=== PATIENT | female | born 1950 | race Caucasian/White ===

== ENCOUNTER 2023-04-24 14:29 | Emergency (ER) | payer OTHER, SELFPAY ==
[2023-04-24 14:31] VITALS: BP 164/100
--- NOTE | 2023-04-24 14:33 | ED.GENMED ---
History of Present Illness
General
Chief Complaint: Change in Mental Status
Time Seen by Provider: 04/24/23 14:32
History of Present Illness
History of Present Illness:
HPI: I spoke to EMS for history at 2:30 PM. At 2 PM, the patient was in her dining room with her and had abrupt onset of symptoms. She was found to have left-sided paresis. EMS called prehospital stroke alert. She had been vomiting. She
is not on any antiplatelets or anticoagulation. She is on a statin according to EMS.
EXAM:
GENERAL: The patient appears to be in mild to moderate distress and has active retching
HEENT: Moist oral mucosa
CARDIOVASCULAR: No murmurs, normal heart rate and rhythm, No chest wall tenderness
PULMONARY: No respiratory distress, breath sounds are clear and equal
ABDOMEN: Soft with no peritoneal signs, no tenderness
NEUROLOGIC: Markedly decreased strength strength left upper and left lower extremities, no coordination deficits
PSYCHIATRIC: Appropriate mental status, reasonable insight and judgement
EXTREMITIES: Nontender, no edema, markedly decreased active range of motion on the left upper and left lower extremity
SKIN: No rash, no lesions
ED COURSE:
2:30 PM: I initially evaluated patient
NUMBER AND COMPLEXITY OF PROBLEMS ADDRESSED AT THE ENCOUNTER
� Chronic conditions affecting care: High blood pressure, anemia
� Acute Exacerbation and/or Progression of Chronic Illness: This is an acute problem
� Differential Diagnosis includes: Nonhemorrhagic CVA, hemorrhagic CVA, hypoglycemia has been ruled out by EMS, electrolyte abnormality, anemia
AMOUNT AND/OR COMPLEXITY OF DATA TO BE REVIEWED AND ANALYZED
� I performed an independent evaluation of and my interpretation is:
EKG: Sinus 101, normal axis, nonspecific ST abnormality, QTc is 471 ms
CT: CT personally reviewed which shows intraparenchymal hemorrhage on the right with intraventricular extension into the lateral ventricle on the right
X-rays:
Laboratory Studies: Minimal leukocytosis noted, chemistries pending, coags unremarkable, glucose 186
Other:
� Review of other/old records: The patient was here in 2021 with a uterine prolapse managed operatively
� Clinical information was obtained by an independent historian: EMS
� Prescriptions/Medications Considered but not given: Considered Keppra but not recommended by neurology
� Further testing considered but not performed:
RISK OF COMPLICATIONS AND/OR MORBIDITY OR MORTALITY OF PATIENT MANAGEMENT
� Social determinants of health affecting care:
� Discussion with other providers: Dr. Kiran immediately upon arrival, I also spoke to Dr. Rhoades via [place] text
� Escalation of care including admission/observation vs risk of discharge considered: The patient was seen immediately upon arrival and is found to have an intraventricular hemorrhage arising from a bleed in the right thalamic
region. She is not on antiplatelets or anticoagulation. Her vital signs were closely monitored and has remained hypertensive. She was placed on a Cardene drip emergently. The patient will emergently be transferred to [facility]. [place] accepts.
Past History
Past History
ED Past Medical History: Other (anemia, glaucoma, stress incont, OA)
Social History
Tobacco: Non-smoker
Personal:
Phy Exam
Physical Exam
Physical Exam:
See HPI
Course
Orders/Labs/Results
Orders:
Orders
04/24/23 14:32
CT Head W/o Cont STROKE ALERT Urgent
Reason For Exam: acute L paresis
04/24/23 14:33
Electrocardiogram (*1) Urgent
Reason for Study: TIA/Stroke
EKG- Treatment ONCE
04/24/23 14:37
Ondansetron Injectable [Zofran] 4 mg .ROUTE .STK-MED ONE
04/24/23 14:40
Basic Metabolic Panel Urgent
LFT [[id number]] Urgent
Lipase Urgent
PTT Urgent
Prothrombin Time Urgent
04/24/23 14:41
Type+Screen Urgent
Complete Blood Count/With Diff Urgent
Ondansetron Injectable [Zofran] 4 mg IV NOW STA
04/24/23 15:09
Nicardipine 40 mg/200 ml [Cardene] 40 mg in 200 ml .ROUTE .STK-MED
04/24/23 15:15
Nicardipine 40 mg/200 ml [Cardene] 40 mg in 200 ml IV PER PROTOCOL
Nicardipine 40 mg/200 ml [Cardene] 40 mg in 200 ml IV PER PROTOCOL
Initial dose in mg/hr, then titrate:: 5
Titrate to keep:: SBP 120 - 140 mmHg
Titrate to keep other:: Keep SBP <140
Titrate by mg/hr:: 2.5 mg/hr
Frequency of titrations (minutes):: 5-15 minutes
Maximum dose in mg/hr:: 15
Begin to taper infusion when:: Remained at goal for 2hrs
Taper by mg/hr:: 2.5 mg/hr
Frequency of taper (minutes) if patient maintains goal:: every 15-30 minutes
Taper to off?: Yes
If infusion off & no longer maintaining goal:: Contact Provider
Abnormal Lab Results
04/24/23 04/24/23
14:34 14:41
WBC 10.9 H 10^3/uL
(4.8-10.8)
Absolute Lymphs (auto) 3.9 H 10^3/uL
(1.2-3.4)
POC Glucose 186 H mg/dl
(70-99)
04/24/23 14:41
Vital Signs
Initial and Last Documented VS:
Initial Vital Signs
Pulse Resp BP Pulse Ox
100 22 164/100 98
04/24/23 14:31 04/24/23 14:31 04/24/23 14:31 04/24/23 14:31
Last Documented Vital Signs
Pulse Resp BP Pulse Ox
100 22 164/100 98
04/24/23 14:31 04/24/23 14:31 04/24/23 14:31 04/24/23 14:31
*Pulse Oximetry
Patient hypoxic: no
*Critical Care Note
Total Time (30-74mins, 75-104mins- exclusive of procedures): 60 minutes
comment:
The patient's neurologic status was closely monitored. She remains to have flaccid paralysis. She intermittently does have retching but has been protecting her airway. She has reasonable insight and judgment. Blood pressure did rise and we
increase the Cardene. I had emergent discussions with neurology and neurosurgery.
ED Attending Note
-
Portions of this chart may have been created with voice recognition software.� Occasional wrong word or��sound alike� substitutions may have occurred due to the inherent limitations of voice recognition software.
Discharge Plan
Departure
Patient Disposition: Acute Care Hospital
Date of Disposition: 04/24/23
Time of Disposition: 15:11
Discharge Problem:
Intracranial hemorrhage
Prescriptions:
No Action
lisinopril 20 mg Tablet
20 mg PO DAILY
ascorbic acid (vitamin C) [Vitamin C] 500 mg Tablet
500 mg PO DAILY
cholecalciferol (vitamin D3) [Vitamin D3] 50 mcg (2,000 unit) Tablet
50 mcg PO Q48H
vwqhjadytzag-kelp-pehki acid 18-400 mg-mcg Tablet
1 tab PO DAILY
acetaminophen 325 mg Tablet
650 mg PO Q4HPRN PRN (Reason: mild pain) Qty: 60 0RF
docusate sodium 100 mg Capsule
100 mg PO BID Qty: 60 0RF
oxycodone 5 mg Tablet
5 mg PO Q4HPRN PRN (Reason: severe pain when tolerating PO) Qty: 10 0RF
Referrals:
UNKNOWN,NO INTERVIEW [Family Provider] -
Hospital Transfer
Other hospital: [place]
I certify that the patient requires transfer: Yes
Discussed case with accepting physician: Dr. Jodie Rhoades
Reason for transfer: higher level of care
Interventions
Interventions:
*Risk Screen - Suicide Last Done: 04/24/23 14:31
*General Assessment Last Done: 04/24/23 14:31
*Neglect/Abuse Screening Last Done: 04/24/23 14:31
--- NOTE | 2023-04-24 14:34 | CON.NEURO4 ---
Addendum entered and electronically signed by Lorenzo Kiran MD 04/24/23 17:04:
Studies reviewed.
I have personally examined the patient. I reviewed and agree with the [employer]'s Note.
My addenda:
Awake, closes eyes after 1 second, interactive. No acute distress.
Speech intact.
Follows 2-step requests w/ difficulty. No tremor. Lack of complete awareness of her left side
Extra-ocular movements grossly intact.
Facial movements full and symmetric. Hearing intact to normal conversational volume.
Normal UE movements bilaterally.
Neck: full ROM.
Chest: no dyspnea
Heart: no JVD
Ext: (-) Clubbing, (-) Cyanosis, (-) Edema
IMPRESSIONS/RECOMMENDATIONS:
Abrupt onset of acute intraparenchymal hemorrhage
Acute consultation to neurosurgery
Reduce BP
Will continue to follow as needed.
Original Note:
Documented by User: María Lion NP 04/24/23 15:27
Consultation - Neurology 4
-
CONSULTING PHYSICIAN: Lorenzo Kiran MD
REFERRING PHYSICIAN: ER/Dr. Gray
DICTATED BY: BRANDON Mendez
DATE/TIME OF REQUEST: 04/24/23
DATE/TIME OF CONSULTATION: 04/24/23
Reason for Consultation: Stroke Alert
History of Present Illness:
This is a 73-year-old left-handed female who has presented to the hospital with report of sudden onset nausea, vomiting, and left hemiparesis at 1400 today (04/24/23). Patient was at her baseline prior to 1400 per her . He called EMS and a
Stroke Alert was activated. ER VS: BP 164/100, HR 100, RR 22, pulse ox 98% RA. CT head was obtained in the ER and demonstrates a large
She endorses ongoing nausea and is still vomiting, in addition to left-sided weakness. She denies any headache, dizziness, vision changes, speech difficulty, numbness, chest pain, palpitations, and shortness of breath. She has no history of TIA,
stroke, or events like this in the past. She is not taking any blood thinning medications. She is taking lisinopril for HTN.
Past Medical History: HTN, HLD, impaired fasting blood glucose, osteoarthritis, anemia, humerus fracture, glaucoma, stress incontinence
Surgical History: Denies
Family History: Reviewed and noncontributory.
Social History: Denies tobacco, alcohol, and illicit drug use.
Allergies: Pollen extracts, Macrobid.
Home Medications: See below.
Review of Symptoms:
Patient denies any fever, headache, chest pain, shortness of breath, or symptoms.
�Per the HPI.�All systems are reviewed negative except above.
Physical Exam:
The patient is afebrile, abdomen is nondistended, breathing is unlabored, skin is warm and dry, no edema.
NIH Stroke Scale:
I performed the NIH stroke scale on the patient on 04/24/23 at 1430. The patient scored 8 points on the NIH stroke scale assessment, which were assigned as follows: See below.
Neurologic Examination:
The patient is awake, alert and oriented x 3. She is able to follow commands and answer questions appropriately. There is no aphasia or dysarthria. On cranial nerve assessment, pupils are 3 mm bilateral, round and reactive to light and
accommodation. Visual james are full. Extraocular movements are intact. There is left facial drooping. Hearing is intact bilaterally to normal conversation volume. Tongue palate and uvula are midline. Motor strengths are 5/5 right upper and lower
extremities, 2/5 left upper and lower extremities on medical research [place] scale. No involuntary movement noted. Deep tendon reflexes are 1+ bilateral upper and lower extremities and Babinski is absent bilaterally. There was extinction noted on
double simultaneous stimulation on the left side. SHAGGY coordination on the left side, finger to nose intact on the right side.
Lab Results: See below.
Neuro Imaging:
1. CT Head 04/24/23: There is a rounded focus of increased density involving the right thalamus and extending into the adjacent right lentiform nucleus, compatible with acute intracranial hemorrhage. This intraparenchymal component of hemorrhage
measures approximately 2.7 cm AP by 2.6 cm transverse by 2.5 cm craniocaudal. Additionally, there is acute hemorrhage extending into the right lateral ventricle, with involvement of the frontal horn, body, atrium, and occipital and temporal horns of
the right lateral ventricle. There is also extension of hemorrhage into the fourth ventricle, with a small amount of hemorrhage seen at the junction of the left lateral ventricle and the third ventricle. Findings most likely represent an
intraparenchymal hemorrhage with intraventricular extension. There is mild midline shift from right to left.
Differentials for the patient's presentation include:
1. Acute intraparenchymal hemorrhage with intraventricular extension and associated right to left midline shift.
Patient has the following risk factors for their symptoms: HTN, HLD
IV Tenecteplase/IAT candidacy: Not a candidate due to intracranial hemorrhage.
Recommendations:
-STAT Neurosurgery consultation. Patient needs urgent transfer to tertiary facility.
Discussed patient care with: Dr. Kiran, the patient
Vital Signs and Labs
-
Vital Signs and Labs:
Vital Signs
Pulse Resp BP Pulse Ox
100 22 164/100 98
04/24/23 14:31 04/24/23 14:31 04/24/23 14:31 04/24/23 14:31
Medications
-
Home Medications
Medication Instructions Recorded
ascorbic acid (vitamin C) 500 mg 500 mg PO DAILY Supplement 02/09/22
tablet (Vitamin C)
cholecalciferol (vitamin D3) 50 50 mcg PO Q48H Supplement 02/09/22
mcg (2,000 unit) tablet (Vitamin
D3)
lisinopril 20 mg tablet 20 mg PO DAILY Blood pressure 02/09/22
multivitamin-ferrous 1 tab PO DAILY Supplement 02/09/22
fumarate-folic acid 18 mg-400 mcg
tablet
acetaminophen 325 mg tablet 650 mg PO Q4HPRN PRN mild pain #60 02/14/22
tabs
docusate sodium 100 mg capsule 100 mg PO BID #60 caps 02/14/22
oxycodone 5 mg tablet 5 mg PO Q4HPRN PRN severe pain 02/14/22
when tolerating PO #10 tabs
NIH Stroke Score
Subsequent NIH Scale
Date of Subsequent NIH Scale: 04/24/23
Time of Subsequent NIH Scale: 14:30
NIH Stroke Score
Level of Consciousness: 0 - Alert
LOC Questions: 0-Answers both correctly
LOC Commands: 0-Performs both correctly
Best Horizontal Gaze: 0-Normal
Visual James: 0=Normal, no visual loss
Facial Palsy: 1=Minor paralysis
Motor - Right Arm: 0=No drift 10 seconds
Motor - Left Arm: 3=None vs. gravity
Motor - Right Le-No drift 5 seconds
Motor - Left Le-None vs. gravity
Limb Ataxia: 0-Absent
Sensation: 0-Normal
Best Language: 0-No aphasia
Dysarthria: 0-Normal
Extinction and Inattention: 1-Sensory inattention
Total Score:: 8

Documented by User: Lorenzo Kiran MD 04/24/23 16:53
NIH Stroke Score
NIH Stroke Score
Total Score:: 8
[2023-04-24 14:45] VITALS: BP 153/95
[2023-04-24 14:46] LABS: Glucose - Point of Care 186 mg/dl (70-99)
[2023-04-24 14:46] LABS: % Basophils 0.5 % (0-2); % Immature Granulocytes 0.3 % (0-0.5); % Lymphocytes 35.6 % (20.5-51.1); % Monocytes 5.7 % (1.7-9.3); % Neutrophils 55.9 % (42.2-75.2); Absolute Basophils 0.1 10^3/uL (0-0.2); Absolute Eosinophils 0.2 10^3/uL (0-0.7); Absolute Lymphocytes 3.9 10^3/uL (1.2-3.4); Absolute Monocytes 0.6 10^3/uL (0.1-0.6); Absolute Neutrophils 6.1 10^3/uL (1.4-6.5); Hematocrit 40.8 % (37.0-47.0); Hemoglobin 13.8 g/dL (12.0-16.0); Mean Corp Hgb Conc. 33.8 g/dL (33.0-37.0); Mean Corpuscular Hgb 30.3 pg (27.0-31.0); Mean Corpuscular Volume 89.7 fL (81.0-99.0); Mean Platelet Volume 9.2 fL (7.4-10.4); Nucleated Red Blood Cells % 0 %; Platelet Count 329 10^3/uL (130-400); Red Blood Cell Count 4.55 10^6/uL (4.20-5.40); Red Cell Dist. Width 13.2 % (11.5-14.5); White Blood Cell Count 10.9 10^3/uL (4.8-10.8)
[2023-04-24] MEDS: ZOFRAN 4 MG IV (14:51)
[2023-04-24 14:57] LABS: INR 1.06
[2023-04-24 14:58] LABS: APTT 28.4 Sec (23.4-35.0)
[2023-04-24 15:00] VITALS: BP 157/100
[2023-04-24 15:15] VITALS: BP 170/100
[2023-04-24] MEDS: CARDENE 200 IV (15:27)
[2023-04-24 15:30] VITALS: BP 157/100
[2023-04-24 15:45] VITALS: BP 132/81
[2023-04-24 16:59] LABS: Blood Urea Nitrogen 20 mg/dl (7-17); Calcium 9.4 mg/dl (8.4-10.2); Carbon Dioxide 26 mmol/L (22-30); Chloride 105 mmol/L (98-107); Glucose 195 mg/dl (70-99); Potassium 3.6 mmol/L (3.5-5.1); Sodium 138 mmol/L (135-145); eGFR > 60.00
[2023-04-24 17:09] LABS: ALT (SGPT) 23 U/L (0-35); AST (SGOT) 30 U/L (14-36); Albumin 4.6 g/dl (3.5-5.0); Alkaline Phosphatase 99 U/L (38-126); Total Bilirubin 1.1 mg/dl (0.2-1.3); Total Protein 7.6 g/dl (6.3-8.2)
[2023-04-24 17:48] LABS: Lipase 107 U/L (23-300)
[2023-04-24 17:54] LABS: Direct Bilirubin 0.5 mg/dl (0.0-0.4)
== END 2023-04-24 16:28 | disposition short-term general hospital (02) ==
LOC: EMR 14:29
PROVIDERS: EMERGENCY PHYSICIAN Emergency Medicine; OTHER PHYSICIAN Psychiatry & Neurology Neurology
DX: I61.5 Nontraumatic intracerebral hemorrhage, intraventricular (principal); G81.94 Hemiplegia, unspecified affecting left nondominant side; R11.2 Nausea with vomiting, unspecified; I10 Essential (primary) hypertension; E78.5 Hyperlipidemia, unspecified; M19.90 Unspecified osteoarthritis, unspecified site; D64.9 Anemia, unspecified; H40.9 Unspecified glaucoma; N39.3 Stress incontinence (female) (male); Z88.1 Allergy status to other antibiotic agents; Z91.048 Other nonmedicinal substance allergy status
CPT/HCPCS: 99291; 96365; 96375; 70450; 80048; 80076; 82962; 83690; 85025; 85610; 85730; 86850; 86900; 86901; 93005

== ENCOUNTER → 2023-09-20 11:18 | Outpatient (REF) | payer MEDICARE, SELFPAY ==
[2023-09-20 11:47] LABS: % Basophils 0.2 % (0-2); % Eosinophils 1.2 % (0-6); % Immature Granulocytes 0.2 % (0-0.5); % Monocytes 4.8 % (1.7-9.3); % Neutrophils 68.6 % (42.2-75.2); Absolute Eosinophils 0.1 10^3/uL (0-0.7); Absolute Lymphocytes 2.4 10^3/uL (1.2-3.4); Absolute Monocytes 0.5 10^3/uL (0.1-0.6); Absolute Neutrophils 6.4 10^3/uL (1.4-6.5); Hematocrit 36.4 % (37.0-47.0); Hemoglobin 12.4 g/dL (12.0-16.0); Mean Corp Hgb Conc. 34.1 g/dL (33.0-37.0); Mean Corpuscular Hgb 30.2 pg (27.0-31.0); Mean Corpuscular Volume 88.8 fL (81.0-99.0); Mean Platelet Volume 9.2 fL (7.4-10.4); Nucleated Red Blood Cells % 0 %; Platelet Count 369 10^3/uL (130-400); Red Cell Dist. Width 13.2 % (11.5-14.5); White Blood Cell Count 9.4 10^3/uL (4.8-10.8)
[2023-09-20 12:34] LABS: ALT (SGPT) 50 U/L (0-35); AST (SGOT) 35 U/L (14-36); Albumin 4.6 g/dl (3.5-5.0); Alkaline Phosphatase 109 U/L (38-126); Blood Urea Nitrogen 16 mg/dl (7-17); Calcium 10.2 mg/dl (8.4-10.2); Carbon Dioxide 29 mmol/L (22-30); Chloride 104 mmol/L (98-107); Glucose 109 mg/dl (70-99); HDL Cholesterol 66 mg/dl; LDL Cholesterol, Calculated 105 mg/dl; Potassium 3.8 mmol/L (3.5-5.1); Sodium 141 mmol/L (135-145); Total Bilirubin 1.3 mg/dl (0.2-1.3); Total Cholesterol 191 mg/dl (50-199); Total Protein 7.6 g/dl (6.3-8.2); Triglyceride 100 mg/dl (10-149); Very Low Density Lipoprotein 20 mg/dl (0-30); eGFR > 60.00
[2023-09-20 13:04] LABS: TSH 1.09 uIU/ml (0.47-4.68)
== END ==
LOC: CLAB 11:18
PROVIDERS: ATTENDING PHYSICIAN Physician Assistant Medical
DX: E78.2 Mixed hyperlipidemia (principal); R73.01 Impaired fasting glucose; Z78.9 Other specified health status; N39.0 Urinary tract infection, site not specified
CPT/HCPCS: 80053; 80061; 84443; 85025

== ENCOUNTER 2023-12-28 06:34 | Outpatient (RCR) | payer MEDICARE, SELFPAY | END 2023-12-28 23:59 | disposition home or self-care (01) | LOC: ROT 06:34 | PROVIDERS: ATTENDING PHYSICIAN Physician Assistant Medical | DX: I69.354 Hemiplegia and hemiparesis following cerebral infarction affecting left non-dominant side (principal); Z73.6 Limitation of activities due to disability; I10 Essential (primary) hypertension; Z99.3 Dependence on wheelchair | CPT/HCPCS: 97010; 97110; 97112; 97116; 97163; 97167; 97530; 97535 ==

== ENCOUNTER 2024-01-30 06:33 | Outpatient (RCR) | payer MEDICARE, SELFPAY | END 2024-01-30 23:59 | disposition home or self-care (01) | LOC: RST 06:33 | PROVIDERS: ATTENDING PHYSICIAN Physician Assistant Medical | DX: I69.354 Hemiplegia and hemiparesis following cerebral infarction affecting left non-dominant side (principal); Z73.6 Limitation of activities due to disability; I10 Essential (primary) hypertension; I95.1 Orthostatic hypotension | CPT/HCPCS: 96125; 97010; 97110; 97112; 97116; 97129; 97130; 97140; 97530; 97535 ==

== ENCOUNTER 2024-02-26 16:00 | Outpatient (RCR) | payer MEDICARE, SELFPAY | END 2024-02-26 23:59 | disposition home or self-care (01) | LOC: RST 16:00 | PROVIDERS: ATTENDING PHYSICIAN Physician Assistant Medical | DX: I69.354 Hemiplegia and hemiparesis following cerebral infarction affecting left non-dominant side (principal); Z73.6 Limitation of activities due to disability; I69.318 Other symptoms and signs involving cognitive functions following cerebral infarction | CPT/HCPCS: 97010; 97110; 97112; 97140; 97530; 97535 ==

== ENCOUNTER 2024-03-31 10:10 | Outpatient (RCR) | payer MEDICARE, SELFPAY | END 2024-03-31 23:59 | disposition home or self-care (01) | LOC: RST 10:10 | PROVIDERS: ATTENDING PHYSICIAN Physician Assistant Medical | DX: I69.354 Hemiplegia and hemiparesis following cerebral infarction affecting left non-dominant side (principal); Z73.6 Limitation of activities due to disability; I69.318 Other symptoms and signs involving cognitive functions following cerebral infarction; R26.89 Other abnormalities of gait and mobility | CPT/HCPCS: 97110; 97112; 97116; 97530; 97535 ==

== ENCOUNTER 2024-05-02 10:15 | Outpatient (RCR) | payer MEDICARE, OTHER, SELFPAY | END 2024-05-02 23:59 | disposition home or self-care (01) | LOC: RST 10:15 | PROVIDERS: ATTENDING PHYSICIAN Physician Assistant Medical | DX: I69.354 Hemiplegia and hemiparesis following cerebral infarction affecting left non-dominant side (principal); Z73.6 Limitation of activities due to disability; I69.318 Other symptoms and signs involving cognitive functions following cerebral infarction; R26.89 Other abnormalities of gait and mobility | CPT/HCPCS: 97010; 97110; 97112; 97530; 97535 ==

== ENCOUNTER 2024-05-28 10:13 | Outpatient (RCR) | payer MEDICARE, OTHER, SELFPAY | END 2024-05-28 23:59 | disposition home or self-care (01) | LOC: RST 10:13 | PROVIDERS: ATTENDING PHYSICIAN Physician Assistant Medical | DX: I69.354 Hemiplegia and hemiparesis following cerebral infarction affecting left non-dominant side (principal); Z73.6 Limitation of activities due to disability; I69.318 Other symptoms and signs involving cognitive functions following cerebral infarction; R26.89 Other abnormalities of gait and mobility | CPT/HCPCS: 97110; 97112; 97530; 97535 ==

== ENCOUNTER → 2024-06-28 12:30 | Outpatient (REF) | payer MEDICARE, SELFPAY | LOC: PAVMRI 12:30 | PROVIDERS: ATTENDING PHYSICIAN Psychiatry & Neurology Neurology; FAMILY PHYSICIAN Physician Assistant Medical; REFERRING PHYSICIAN Psychiatry & Neurology Neurology | DX: M54.2 Cervicalgia (principal); M54.12 Radiculopathy, cervical region; M54.50 Low back pain, unspecified; M54.16 Radiculopathy, lumbar region | CPT/HCPCS: 72141; 72148 ==

== ENCOUNTER → 2024-09-24 10:45 | Outpatient (REF) | payer MEDICARE, OTHER, SELFPAY | LOC: EMG 10:45 | PROVIDERS: ATTENDING PHYSICIAN Psychiatry & Neurology Neurology; FAMILY PHYSICIAN Physician Assistant Medical | DX: R20.0 Anesthesia of skin (principal) | CPT/HCPCS: 95886; 95909 ==

== ENCOUNTER 2024-09-28 13:41 | Inpatient (IN) | payer MEDICARE, OTHER, SELFPAY ==
[2024-09-28] VITALS (7 sets, daily range): BP systolic 106–136; BP diastolic 58–82; BMI 18.0
--- NOTE | 2024-09-28 10:41 | ED.GENMED ---
History of Present Illness
General
Chief Complaint: Weakness
Source: patient
Exam Limitations: none
Time Seen by Provider: 09/28/24 10:28
History of Present Illness
History of Present Illness:
74yoF with a history of prior CVA with L sided weakness and hypertension presenting with her for evaluation of weakness. Patient started to experiencing a stinging pain with urination 3 days ago. She took a home UTI test which was
positive. Her PCP started her on Bactrim yesterday (no urinalysis obtained in office). Patient started to experience vomiting last night which continued this morning. She is also experiencing chills but denies any fever. She is feeling much
weaker than normal and is concerned for a kidney infection. No abdominal or flank pain. She also reports some intermittent dyspnea and nasal congestion.
Past History
Past History
ED Past Medical History: Other (anemia, glaucoma, stress incont, OA)
Social History
Tobacco: Non-smoker
Personal:
Phy Exam
Physical Exam
Physical Exam:
Appears fatigued, non-toxic
General Physical Exam
General Presentation: no apparent distress
General Skin: warm and dry
General Habitus: elderly
General Mental: alert
ENT Exam
ENT Exam: pharynx normal, neck supple and normocephalic
Cardiovascular Exam
Cardiovascular Exam: regular rate/rhythm
Pulmonary Exam
Pulmonary Exam: lungs clear, no respiratory distress, no rales, no crackles, no rhonchi and no wheezing
Gastrointestinal Exam
Gastrointestinal Exam: non tender, soft, non distended and no cva tenderness
Neurological Exam
Neurological Exam: alert
[place] Coma Scale
Eye Opening: Spontaneous
Verbal Response: Oriented
Motor Response: Obeys Commands
GCS Total Score: 15
Skin Exam
Skin Exam: normal color and warm/dry
Psychiatric Exam
Psychiatric Exam: normal mood/affect
Course
Orders/Labs/Results
Orders:
Orders
09/28/24 10:39
Electrocardiogram (*1) Urgent
Reason for Study: Shortness of Breath
CT Abd/pelvis W Iv Cont Urgent
Comment:
Reason For Exam: lower abd pain, chills, UTI symptoms
EKG- Treatment ONCE
CR Chest - 2 Views Urgent
Comment:
Reason For Exam: SOB
09/28/24 10:40
0.9% Sodium Chloride 500 ml [Nss] 500 ml IV BOLUS
09/28/24 11:00
Complete Blood Count/With Diff Urgent
09/28/24 11:05
COVID-19 Antigen Urgent
Source: Nasal Swab
Comprehensive Metabolic Panel Urgent
Lactate Level [Lactic Acid] Urgent
Troponin I Urgent
Urinalysis Reflex To Culture Urgent
Date Specimen was Collected: 09/28/24
Time Specimen was Collected: 11:00
Urine Microscopic Reflex Cult Urgent
Influenza A+B Rapid Molecular Urgent
DANICA Source: Nasal Swab
Specimen Description:
Urine Culture Urgent
DANICA Source: U
Specimen Description:
Date Specimen was Collected: 09/28/24
Time Specimen was Collected: 11:00
09/28/24 11:17
Ondansetron Injectable [Zofran] 4 mg IV NOW STA
09/28/24 13:14
0.9% Sodium Chloride 500 ml [Nss] 500 ml IV BOLUS
Acetaminophen [Tylenol] 650 mg PO NOW STA
CefTRIAXone [Rocephin] 1,000 mg IV NOW STA
09/28/24 13:30
Admit/Transfer Patient As Directed
Co-Sign Provider:
Level of Care: Inpatient admission
Assign to:: Medical/Surgical
Physician / Group: monse
Diagnosis: uti
Reason for Hospitalization: uti
Expected length of stay greater than two midnights?: Yes
ELOS- Estimated Length of Stay in days: 2
I certify the patient meets the requirements for IP care: Yes
PRN Pain Medication Management As Directed
May give lesser potent ordered pain med per pt: Yes
preference::
Protocol:: Medication orders for pain may be administered in a
manner that supports deferring to patient preference
when the pt is:
- Requesting an ordered lesser potent pain medication.
Least to most potent pain medications are defined
as: acetaminophen < NSAID < tramadol < opioids
(morphine, oxycodone, hydromorphone).
- Requesting a lesser dose of the same medication IF
ORDERED.
- Requesting a less intrusive route of administration
if both routes are prescribed by the provider (PO <
IV).
09/28/24 13:31
Code Status As Directed
Resuscitation Status: Do not resuscitate
Reached after discussion with pt or family/Healthcare POA: Yes
DNR Bracelet Application ONCE
Abnormal Lab Results
09/28/24 09/28/24
11:00 11:05
WBC 11.3 H 10^3/uL
(4.8-10.8)
Absolute Neuts (auto) 9.2 H 10^3/uL
(1.4-6.5)
Neutrophils % 81.7 H %
(42.2-75.2)
Lymphocytes % 12.0 L %
(20.5-51.1)
Glucose 139 H mg/dl
(70-99)
Ur Occult Blood Reflex 3+ A
(Negative)
Urine Nitrite (Reflex) Positive A
(Negative)
Leukocyte Esterase Rfl 3+ A
(Negative)
Urine RBC 21-25 A /HPF
(0-2)
Urine WBC (Reflex) 60-70 A /HPF
(0-5)
Urine Bacteria (Reflex) Many A
(Negative)
Urine Albumin (Reflex) 2+ A
(Neg - Trace)
09/28/24 11:00
09/28/24 11:05
Vital Signs
Initial and Last Documented VS:
Initial Vital Signs
Temp Pulse Resp BP Pulse Ox
98.5 F 107 18 136/77 98
09/28/24 10:22 09/28/24 10:22 09/28/24 10:22 09/28/24 10:22 09/28/24 10:22
Last Documented Vital Signs
Temp Pulse Resp BP Pulse Ox
98.5 F 82 17 130/82 97
09/28/24 10:22 09/28/24 14:00 09/28/24 14:00 09/28/24 14:00 09/28/24 11:44
MDM/Problems Addressed
Differential Diagnosis Includes:
74yoF here with vomiting, weakness, and chills starting last night. Started on Bactrim yesterday for a UTI. HR 107 in triage. Remainder of vitals normal. She appears fatigued but is non-toxic. No abdominal or CVA tenderness on exam. Differential
diagnosis includes but is not limited to: UTI, pyelonephritis, viral illness, dehydration, sepsis
Initial ED plan: Check cardiac labs, lactate, blood cultures, UA, COVID/flu swab, CXR, and CT abdomen. IV fluid bolus.
*Pulse Oximetry
SaO2: 98
Oxygen Mode of Delivery: Room air
Patient hypoxic: no (98%)
*EKG
Interpreted by ED Provider?: Yes
EKG Intrepretation Date: 09/28/24
Heart Rate: 92
Rate: normal
Rhythm: sinus
[place]: normal axis
Interval: normal interval
QRS Pattern: normal QRS
Ischemia: non-specific ST changes
*Critical Care Note
Total Time (30-74mins, 75-104mins- exclusive of procedures): Not Applicable
Update Note
Update Note:
UA is nitrite positive with 3+ leukocytes. White count is 11.3, lactate WNL. No imaging evidence of pyelonephritis. Given degree of weakness, will admit. IV Rocephin ordered and patient admitted to the hospitalist service for further management.
ED Attending Note
-
Portions of this chart may have been created with voice recognition software.� Occasional wrong word or��sound alike� substitutions may have occurred due to the inherent limitations of voice recognition software.
Discharge Plan
Departure
Patient Disposition: Admit
Date of Disposition: 09/28/24
Time of Disposition: 13:17
Presentation/result/management discussed w/ accepting MD/DO: Hospitalist
Discharge Problem:
Urinary tract infection, Nausea and vomiting, Generalized weakness
Interventions
Interventions:
*Risk Screen - Suicide Last Done: 09/28/24 10:25
*General Assessment Last Done: 09/28/24 11:28
*Neglect/Abuse Screening Last Done: 09/28/24 10:25
*ED- Fall Risk Assessment Last Done: 09/28/24 11:28
*ED COVID-19 Vaccine History Last Done: 09/28/24 11:28
ED- Cardiac Assessment Last Done: 09/28/24 11:00
ED- Neurological Assessment Last Done: 09/28/24 11:00
ED- Pulmonary Assessment Last Done: 09/28/24 11:00
[2024-09-28] MEDS: NSS 500 IV ×2 (11:07→13:35)
[2024-09-28 11:17] LABS: Urine Character Cloudy (Clear)
[2024-09-28] MEDS: ZOFRAN 4 MG IV (11:21)
[2024-09-28 11:34] LABS: ALT (SGPT) 19 U/L (0-35); AST (SGOT) 22 U/L (14-36); Albumin 4.6 g/dl (3.5-5.0); Alkaline Phosphatase 95 U/L (38-126); Blood Urea Nitrogen 14 mg/dl (7-17); Calcium 9.8 mg/dl (8.4-10.2); Carbon Dioxide 25 mmol/L (22-30); Chloride 105 mmol/L (98-107); Glucose 139 mg/dl (70-99); Potassium 3.8 mmol/L (3.5-5.1); Sodium 139 mmol/L (135-145); Total Protein 7.4 g/dl (6.3-8.2); eGFR > 60.00
[2024-09-28 11:34] LABS: Hematocrit 39.3 % (37.0-47.0); Hemoglobin 13.3 g/dL (12.0-16.0); Mean Corp Hgb Conc. 33.8 g/dL (33.0-37.0); Mean Corpuscular Volume 88.7 fL (81.0-99.0); Nucleated Red Blood Cells % 0 %; Platelet Count 362 10^3/uL (130-400); Red Cell Dist. Width 13.4 % (11.5-14.5)
[2024-09-28 11:41] LABS: Urine Squamous Cell 0-2 /LPF (Few); Urine Urothelial Cell 0-2 /LPF (FEW)
[2024-09-28 11:42] LABS: Urine Red Blood Cell 21-25 /HPF (0-2); Urine White Cell 60-70 /HPF (0-5)
[2024-09-28 11:44] LABS: Troponin I < 0.012 ng/ml
[2024-09-28 11:46] LABS: COVID-19 Antigen Negative (Negative)
[2024-09-28] MEDS: TYLENOL 650 MG PO (13:30)
--- NOTE | 2024-09-28 13:34 | HPS.HSE ---
Family Physician
-
Family Physician: NOT KNOW UNKNOWN - PT DOES
Chief Complaint
-
weakness
History of Present Illness
74-year-old female past medical history of prior CVA with left-sided weakness and chronic left neck pain, hypertension, presenting for weakness. She developed stinging pain with urination 3 days ago. She took home UTI test which was positive. She
was started on Bactrim yesterday by her primary. She had vomiting last night which she continues to have. She has chills without fever. Denies abdominal or flank pain. She has intermittent shortness of breath and nasal congestion.
No prior history of kidney stones.
She has a history of constipation but had a bowel movement yesterday.
Denies smoking or alcohol use.
Medical History
Past Medical History
Past Medical History: Reports Other ( prior CVA with left-sided weakness and chronic left neck pain, hypertension)
Past Surgical History: Reports Other (Sacrospinous alignment, appendectomy, humerus surgery)
Social History
Tobacco: Non-smoker
Alcohol: None
Drug: None
Family History
Family History: Not pertinent
Allergies / Home Medications
Allergies reflects when Allergies were last updated in [facility].
Home Medications with original date entered in [facility]
Allergy/Medication List:
Allergies
Allergy/AdvReac Type Severity Reaction Status Date / Time
nitrofurantoin (From Allergy Nausea Verified 09/28/24 10:24
Macrobid)
pollen extracts Allergy seasonal Verified 09/28/24 10:24
allergy
Home Medications
Lactobacillus rhamnosus GG 10 billion cell capsule (Culturelle) 1 cap PO DAILY 09/28/24
acetaminophen 300 mg-codeine 60 mg tablet 1 tab PO BID 09/28/24
acetaminophen 300 mg-codeine 60 mg tablet 1 tab PO DAILYPRN PRN severe pains 09/28/24
amlodipine 5 mg tablet (Norvasc) 5 mg PO DAILY 09/28/24
cranberry 500 mg capsule 500 mg PO DAILY 09/28/24
estradiol 0.01% (0.1 mg/gram) vaginal cream (Estrace) 1 appful vaginal TUSA@2000 09/28/24
polyethylene glycol 3350 17 gram oral powder packet (Miralax) 17 g PO DAILYPRN PRN constipation 09/28/24
sulfamethoxazole 800 mg-trimethoprim 160 mg tablet (Bactrim DS) 1 tab PO BID 09/28/24
therapeutic multivitamin 1 tab PO DAILY 09/28/24
Review of Systems
-
History Source: Patient
A 12 point ROS was completed and negative except as noted: Yes
Constitutional: Reports No Symptoms
EENT: Reports No Symptoms
Respiratory: Reports No Symptoms
Cardiac: Reports No Symptoms
Abdomen/GI: Reports No Symptoms
: Reports See HPI
Musculoskeletal: Reports No Symptoms
Skin: Reports No Symptoms
Neurological: Reports No Symptoms
Endocrine: Reports No Symptoms
Hematologic/Lymphatic: Reports No Symptoms
Psych: Reports No Symptoms
Physical Exam
Vital Signs
Vital Signs
Temp Pulse Resp BP Pulse Ox
98.5 F 85 22 121/80 97
09/28/24 10:22 09/28/24 12:45 09/28/24 12:45 09/28/24 12:12 09/28/24 11:44
Physical Exam
General: Well Developed, Well Nourished and No Apparent Distress
HEENT: NormoCephalic, Moist mucous membranes and Atraumatic
Respiratory: Clear
Cardiac: S1/S2 and Regular Rhythm; No Murmur or Rub
GI: Soft, Non Tender, Non Distended and Normal Bowel Sounds; No Organomegaly
Rectal: Deferred by Provider
Musculoskeletal: No Clubbing, No Cyanosis and No Edema
Skin: No Rash
Neuro: Nonfocal/grossly intact
Laboratory Results
-
09/28/24 11:00
09/28/24 11:05
Laboratory Results
Lactic Acid 1.3 mmol/L (0.7-2.0) 09/28/24 11:05
Total Bilirubin 1.3 mg/dl (0.2-1.3) 09/28/24 11:05
AST 22 U/L (14-36) 09/28/24 11:05
ALT 19 U/L (0-35) 09/28/24 11:05
Alkaline Phosphatase 95 U/L (38-126) 09/28/24 11:05
Troponin I < 0.012 ng/ml 09/28/24 11:05
Data Reviewed
-
Lab Data: Labs Reviewed by me
Old Records: Reviewed
Impression/Plan
-
IMPRESSION:
PLAN:
# Urinary tract infection
- UA shows 60-70 WBC, +3 leukocyte Estrace, positive nitrate
-CT abdomen pelvis shows mild urinary bladder wall thickening, moderate volume of colonic stool possibly constipation
- Urine culture
-IV fluids
- Ceftriaxone
History of prior CVA with left-sided weakness/chronic left neck pain
- Sees pain management for neck pain
Essential hypertension
- Continue amlodipine
DNR/DNI
DVT prophylaxis�heparin
Regular diet
[2024-09-28] MEDS: ROCEPHIN 1000 MG IV (13:57)
[2024-09-28] MEDS: NSS 1000 IV (14:49)
--- NOTE | 2024-09-28 14:50 | PTCARENOTE ---
Pt. arrived from ED via stretcher, pt. states she is wheelchair bound at baseline and incontinent. Pt. requested to keep pure wick in place. Pt. VSS, resting in bed at this time.
[2024-09-28] MEDS: TYLENOL #3 1 TABLET PO (20:05)
[2024-09-28] MEDS: HEPARIN 5000 UNITS SC (20:05)
[2024-09-28] MEDS: CODEINE 30 MG PO (20:05)
[2024-09-28] MEDS: MELATONIN 3 MG PO (21:18)
[2024-09-29] MEDS: NSS 1000 IV ×2 (00:23→10:26)
[2024-09-29 07:00] VITALS: BP 122/77
[2024-09-29 07:43] LABS: Hematocrit 30.6 % (37.0-47.0); Hemoglobin 10.2 g/dL (12.0-16.0); Mean Corp Hgb Conc. 33.3 g/dL (33.0-37.0); Mean Corpuscular Volume 89.7 fL (81.0-99.0); Nucleated Red Blood Cells % 0 %; Platelet Count 315 10^3/uL (130-400); Red Cell Dist. Width 13.5 % (11.5-14.5)
[2024-09-29] MEDS: HEPARIN 5000 UNITS SC (07:54)
[2024-09-29] MEDS: VISBIOME 1 CAP PO (07:55)
[2024-09-29] MEDS: THERAGRAN 1 TABLET PO (07:55)
[2024-09-29] MEDS: CODEINE 30 MG PO ×2 (07:55→20:14)
[2024-09-29] MEDS: TYLENOL #3 1 TABLET PO ×2 (07:55→20:13)
[2024-09-29] MEDS: NORVASC 5 MG PO (07:56)
[2024-09-29 08:20] VITALS: BP 122/77
--- NOTE | 2024-09-29 08:31 | W.PN.HOSP.TC ---
Today's Communication/Plan
-
see bold
Assessment / Plan
Assessment / Plan
HPI: 74-year-old female past medical history of prior CVA with left-sided weakness and chronic left neck pain, hypertension, presenting for weakness. She developed stinging pain with urination 3 days ago. She took home UTI test which was positive.
She was started on Bactrim yesterday by her primary. She had vomiting last night which she continues to have. She has chills without fever. Denies abdominal or flank pain. She has intermittent shortness of breath and nasal congestion. No prior
history of kidney stones. She has a history of constipation but had a bowel movement yesterday. Denies smoking or alcohol use.
# Acute urinary tract infection
UA shows 60-70 WBC, +3 leukocyte Estrace, positive nitrate
CT abdomen pelvis shows mild urinary bladder wall thickening, moderate volume of colonic stool possibly constipation
Continue Rocephin D2, urine cultures growing E. coli, follow-up sensitivity
#Constipation
Start bowel regimen
#Weakness
PT
History of prior CVA with left-sided weakness/chronic left neck pain
- Sees pain management for neck pain
Essential hypertension
- Continue amlodipine
DVT prophylaxis�subcu Lovenox
DNR
Total time spent to see the patient on the floor, examine the patient, review data and lab results, discuss treatment plan with patient, nursing staff around 45 minutes.
Physical Exam
General: Appears weak, no acute distress
HEENT: Normocephalic, Atraumatic, EOMI, MMM
Respiratory: Clear to Auscultation bilaterally
Cardiac: Normal S1/S2, Regular Rate and Rhythm
GI: Soft, Nontender, Nondistended, Normal Bowel Sounds
Extremities: No Clubbing, Cyanosis, or Edema
Neuro: Nonfocal/Grossly Intact
Psych: Calm, Cooperative
Derm: No Visible lesions
Anticipated Discharge: Within 24 hours
Subjective/Interval History
-
Date of Service: September 29, 2024
Patient reports her dysuria is improved. She states her weakness is the same. No fever, no vomiting.
Objective Data
-
Labs:
Laboratory Results
09/29/24
05:56
WBC 8.3
Hgb 10.2 L D
Hct 30.6 L
Plt Count 315
Sodium Pending
Potassium Pending
Chloride Pending
Carbon Dioxide Pending
BUN Pending
Creatinine Pending
Glucose Pending
Calcium Pending
Total Bilirubin Pending
AST Pending
ALT Pending
Alkaline Phosphatase Pending
Vital Signs:
Vital Signs
Temp Pulse Resp BP Pulse Ox
98.4 F 89 16 122/77 100
09/29/24 07:00 09/29/24 07:56 09/29/24 07:00 09/29/24 07:56 09/29/24 07:00
I&O
09/28/24 09/29/24 09/30/24
06:59 06:59 06:59
Intake Total 2200 / 2200
Output Total 600 / 600
Balance 1600 / 1600
[2024-09-29 11:45] LABS: ALT (SGPT) 14 U/L (0-35); AST (SGOT) 19 U/L (14-36); Albumin 3.3 g/dl (3.5-5.0); Alkaline Phosphatase 73 U/L (38-126); Blood Urea Nitrogen 9 mg/dl (7-17); Calcium 9.0 mg/dl (8.4-10.2); Carbon Dioxide 17 mmol/L (22-30); Chloride 113 mmol/L (98-107); Estimated Creatinine Clearance 52 ml/min; Glucose 87 mg/dl (70-99); Potassium 3.8 mmol/L (3.5-5.1); Sodium 138 mmol/L (135-145); Total Protein 5.7 g/dl (6.3-8.2); eGFR > 60.00
[2024-09-29 12:16] VITALS: BMI 18.0
[2024-09-29] MEDS: REFRESH EYE DROPS (PF) 1 DROPS OPHTH (14:00)
[2024-09-29] MEDS: TYLENOL 650 MG PO (14:01)
[2024-09-29] MEDS: ROCEPHIN 1000 MG IV (14:01)
[2024-09-29] MEDS: STERILE WATER FOR INJECTION 10 ML IV (14:10)
[2024-09-29 15:05] VITALS: BP 107/58
--- NOTE | 2024-09-29 16:06 | VNURNOTE ---
Chart reviewed. Spoke with spouse briefly. Spouse Ervin remembered that patient is current with [facility] at home. He would like to continue their services. [facility] updated.
--- NOTE | 2024-09-29 16:09 | CM ---
Alert awake oriented patient who
lives with her Ervin in a 2 story home with ramp to enter and stair glide to bed/bathroom. She is assisted in activates of daily living by private care givers5 x weekly x [address] .She uses wheelchair mostly.
[facility] in past . [facility]
Pharmacy [facility] [address]
PCP Dr Matos
PLAN Home with [facility]
[2024-09-29] MEDS: LOVENOX 30 MG SC (18:15)
[2024-09-29] MEDS: SENOKOT-S 2 TABLET PO (20:13)
[2024-09-29] MEDS: MELATONIN 3 MG PO (20:50)
[2024-09-29 23:42] VITALS: BP 130/84
[2024-09-30 07:05] VITALS: BP 133/78
[2024-09-30] MEDS: CODEINE 30 MG PO ×2 (08:54→20:10)
[2024-09-30] MEDS: NORVASC 5 MG PO (08:55)
[2024-09-30] MEDS: MIRALAX 17 GRAMS PO (08:55)
[2024-09-30] MEDS: TYLENOL #3 1 TABLET PO ×2 (08:55→20:10)
[2024-09-30] MEDS: VISBIOME 1 CAP PO (08:56)
[2024-09-30] MEDS: THERAGRAN 1 TABLET PO (08:56)
[2024-09-30] MEDS: SENOKOT-S 2 TABLET PO ×2 (08:56→20:10)
[2024-09-30] MEDS: FLUSH (NSS) 1 FLUSH IV (09:07)
[2024-09-30] MEDS: REFRESH EYE DROPS (PF) 1 DROPS OPHTH (09:12)
--- NOTE | 2024-09-30 09:16 | W.PN.HOSP.TC ---
Addendum entered and electronically signed by Jd Ko MD 09/30/24 15:18:
#Moderate protein calorie malnutrition
Encourage oral intake
Original Note:
Today's Communication/Plan
-
Plan for discharge home with home PT tomorrow
Assessment / Plan
Assessment / Plan
HPI: 74-year-old female past medical history of prior CVA with left-sided weakness and chronic left neck pain, hypertension, presenting for weakness. She developed stinging pain with urination 3 days ago. She took home UTI test which was positive.
She was started on Bactrim yesterday by her primary. She had vomiting last night which she continues to have. She has chills without fever. Denies abdominal or flank pain. She has intermittent shortness of breath and nasal congestion. No prior
history of kidney stones. She has a history of constipation but had a bowel movement yesterday. Denies smoking or alcohol use.
# Acute urinary tract infection
UA shows 60-70 WBC, +3 leukocyte Estrace, positive nitrate
CT abdomen pelvis shows mild urinary bladder wall thickening, moderate volume of colonic stool possibly constipation
Continue Rocephin D3/3, urine cultures growing pansensitive E. coli
PT recommends short-term rehab, patient declines
Plan for discharge home with home care tomorrow
#Constipation
Continue bowel regimen
#Weakness
PT
History of prior CVA with left-sided weakness/chronic left neck pain
- Sees pain management for neck pain
Essential hypertension
- Continue amlodipine
DVT prophylaxis�subcu Lovenox
DNR
Updated at bedside 09/30
Total time spent to see the patient on the floor, examine the patient, review data and lab results, discuss treatment plan with patient, nursing staff around 50 minutes.
Physical Exam
General: Appears weak, no acute distress
HEENT: Normocephalic, Atraumatic, EOMI, MMM
Respiratory: Clear to Auscultation bilaterally
Cardiac: Normal S1/S2, Regular Rate and Rhythm
GI: Soft, Nontender, Nondistended, Normal Bowel Sounds
Extremities: No Clubbing, Cyanosis, or Edema
Neuro: Nonfocal/Grossly Intact
Psych: Calm, Cooperative
Derm: No Visible lesions
Anticipated Discharge: Within 24 hours
Subjective/Interval History
-
Date of Service: September 30, 2024
Dysuria resolved. Patient continues to feel weak, reports overall improved from admission. No chest pain, no shortness of breath. No fever, no vomiting.
Objective Data
-
Vital Signs:
Vital Signs
Temp Pulse Resp BP Pulse Ox
98.1 F 77 16 133/78 98
09/30/24 07:05 09/30/24 07:05 09/30/24 07:05 09/30/24 07:05 09/30/24 07:05
I&O
09/29/24 09/30/24 10/01/24
06:59 06:59 06:59
Intake Total 2200 / 2200 200 / 200
Output Total 600 / 600
Balance 1600 / 1600 200 / 200
--- NOTE | 2024-09-30 09:25 | CM ---
Maintained on IV antibiotics.
Pt is current with [facility]. Referral placed with [facility] in care port.
Requested PT OT carlos from .
[facility] [phone]
[2024-09-30] MEDS: TYLENOL 650 MG PO (12:00)
[2024-09-30] MEDS: ZYRTEC 10 MG PO (12:01)
[2024-09-30 12:46] VITALS: BP 111/66; PULSE 82
--- NOTE | 2024-09-30 14:20 | PN.CDI ---
CDI
- -
CDI:
Physician Documentation Request
Admit Date: 09/28/24 13:41
Dear Doctor Do,
Please review the following and provide your response in the progress notes.
Clinical Indicators:
- Stage Electrician note indicates moderate protein calorie malnutrition
- Unintentional weight loss >7.5% in 3 months
- Nutrient intake </=75% estimated energy needs, >/= 1 month
Based on the above information and your assessment, which of the following most accurately represents the patient's nutritional status?
Moderate protein calorie malnutrition
Other (please specify)
[place] Criteria ([facility] Hospitalist 2017)
2 or more criteria must be present for either
non severe or severe malnutrition
Note that the criteria differs related to the
presence of an acute or chronic illness
Acute Illness Chronic Illness
Energy Intake Non Severe: <75% for >7 days Non Severe: <75% for >1 month
Severe: <50% for >5 days Severe: <75% for >1 month
Weight Loss Non Severe: 1-2% over 1 week Non Severe: 5% over 1 month
5% over 1 month 7.5% over 3 months
7.5% over 3 months 10% over 6 months
1 year N/A 20% over 1 year
Severe: >2% over 1 week Severe: >5% over 1 month
>5% over 1 month >7.5% over 3 months
>7.5% over 3 months >10% over 6 months
1 year N/A >20% over 1 year
Body Fat Non Severe: Mild Decrease Non Severe: Mild Loss
Severe: Moderate Decrease Severe: Severe Loss
Muscle Mass Non Severe: Mild Decrease Non Severe: Mild Loss
Severe: Moderate Decrease Severe: Severe Loss
Fluid Accumulation Non Severe: Mild Accumulation Non Severe: Mild Accumulation
Severe: Moderate to severe Severe: Moderate to severe
accumulation accumulation
Reduced Field Sales Consultant Strength Non Severe: N/A Non Severe: N/A
Severe: Measurably reduced Severe: Measurably reduced
Additional criteria that can be used to Determine if Mild or Moderate Malnutrition (Merck Manual 2018)
Mild Moderate Severe
Albumin gm/dl <3.0 gm/dl <2.5 gm/dl <2.0 gm/dl
Pre Albumin mg/dl <15 gm/dl <10 mg/dl <5.0 mg/dl
BMI <18.5 <17 <16
Use of terms such as suspected, likely, concern for, or probable (associated with a specific diagnosis that is being evaluated, monitored, or treated as if it exists) are acceptable and can be coded in the inpatient setting, when documented at the
time of discharge.
Thank you,
Sharon Marroquin RN
CDI Specialist
Please use your independent medical judgment in providing your response.
[2024-09-30 15:05] VITALS: BP 113/69
[2024-09-30] MEDS: STERILE WATER FOR INJECTION 10 ML IV (15:14)
[2024-09-30] MEDS: FLUSH (NSS) 2 FLUSH IV (15:14)
[2024-09-30] MEDS: ROCEPHIN 1000 MG IV (15:14)
[2024-09-30] MEDS: LOVENOX 30 MG SC (17:44)
[2024-09-30] MEDS: ESTRACE 0.01% VAGINAL CREAM 1 APPLIC VAG (20:10)
[2024-09-30] MEDS: MELATONIN 3 MG PO (20:58)
[2024-09-30 23:58] VITALS: BP 128/73
[2024-10-01 07:25] VITALS: BP 112/72
[2024-10-01] MEDS: NORVASC 5 MG PO (08:53)
[2024-10-01] MEDS: TYLENOL #3 1 TABLET PO (08:54)
[2024-10-01] MEDS: CODEINE 30 MG PO (08:54)
[2024-10-01] MEDS: ZYRTEC 10 MG PO (08:55)
[2024-10-01] MEDS: MIRALAX 17 GRAMS PO (08:55)
[2024-10-01] MEDS: SENOKOT-S 2 TABLET PO (08:55)
[2024-10-01] MEDS: VISBIOME 1 CAP PO (08:55)
[2024-10-01] MEDS: THERAGRAN 1 TABLET PO (08:55)
--- NOTE | 2024-10-01 08:58 | W.PN.HOSP.TC ---
Today's Communication/Plan
-
Discharge home with home PT today
Assessment / Plan
Assessment / Plan
HPI: 74-year-old female past medical history of prior CVA with left-sided weakness and chronic left neck pain, hypertension, presenting for weakness. She developed stinging pain with urination 3 days ago. She took home UTI test which was positive.
She was started on Bactrim yesterday by her primary. She had vomiting last night which she continues to have. She has chills without fever. Denies abdominal or flank pain. She has intermittent shortness of breath and nasal congestion. No prior
history of kidney stones. She has a history of constipation but had a bowel movement yesterday. Denies smoking or alcohol use.
# Acute urinary tract infection
UA shows 60-70 WBC, +3 leukocyte Estrace, positive nitrate
CT abdomen pelvis shows mild urinary bladder wall thickening, moderate volume of colonic stool possibly constipation
Urine cultures growing pansensitive E. coli, she has received 3 days of IV Rocephin
PT recommends short-term rehab, patient declines
Medically stable for discharge home with home PT today
#Constipation
Continue bowel regimen
#Weakness
PT
#Moderate protein calorie malnutrition
Encourage oral intake
History of prior CVA with left-sided weakness/chronic left neck pain
- Sees pain management for neck pain
Essential hypertension
- Continue amlodipine
DVT prophylaxis�subcu Lovenox
DNR
Updated at bedside 10/01
Physical Exam
General: Appears weak, no acute distress
HEENT: Normocephalic, Atraumatic, EOMI, MMM
Respiratory: Clear to Auscultation bilaterally
Cardiac: Normal S1/S2, Regular Rate and Rhythm
GI: Soft, Nontender, Nondistended, Normal Bowel Sounds
Extremities: No Clubbing, Cyanosis, or Edema
Neuro: Nonfocal/Grossly Intact
Psych: Calm, Cooperative
Derm: No Visible lesions
Anticipated Discharge: Today
Subjective/Interval History
-
Date of Service: September 30, 2024
Patient continues to feel weak, however overall improved. Denies dysuria. No chest pain, no shortness of breath. No fever, no vomiting.
Objective Data
-
Vital Signs:
Vital Signs
Temp Pulse Resp BP Pulse Ox
98.1 F 77 16 133/78 98
09/30/24 07:05 09/30/24 07:05 09/30/24 07:05 09/30/24 07:05 09/30/24 07:05
I&O
09/29/24 09/30/24 10/01/24
06:59 06:59 06:59
Intake Total 2200 / 2200 200 / 200
Output Total 600 / 600
Balance 1600 / 1600 200 / 200
[2024-10-01] MEDS: REFRESH EYE DROPS (PF) 1 DROPS OPHTH (09:38)
[2024-10-01 10:04] VITALS: BP 107/63; PULSE 85; O2SAT 98
--- NOTE | 2024-10-01 10:18 | CM ---
Had long conversation with Ervin . Reviewed PT OT evals which recommended SNF.
Pt and declined SNF.
PT has personal care service provider and to assist as needed at home.
Pt is current with [facility]. Referral placed with [facility] in care port.
will transport home.
IMM reviewed and signed now on chart.
PLAN Home with [facility] fax [phone]
--- NOTE | 2024-10-01 10:28 | W.DCSUMMARY ---
Discharge Summary
Discharge Data
Date of Admission: 09/28/24
Date of Discharge: 10/01/24
-
Pending Results: No
Hospital Course
Discharge diagnosis:
Acute urinary tract infection
Acute on chronic weakness
Constipation
Moderate protein calorie malnutrition
History of prior stroke with residual left-sided weakness and chronic left-sided neck pain
Essential hypertension
Hospital course:
74-year-old female with a past medical history of hypertension, and stroke with residual left-sided weakness and chronic left-sided neck pain who was admitted for an acute urinary tract infection and acute on chronic weakness. Patient was treated
with IV Rocephin. Urine cultures grew out pansensitive E. coli. She received 3 days of IV Rocephin, and does not need any more antibiotics upon discharge.
Patient had constipation. This was treated with laxatives and resolved. She is on Tylenol #3 for her chronic left-sided neck pain. Recommend that she be discharged on senna�S, 2 tablets twice a day scheduled, and MiraLAX as needed.
Patient was seen in conjunction with PT for her weakness. PT recommended short-term rehab. Patient and declined, they wished to go home with home PT.
She is medically stable for discharge. She needs to follow-up with her PCP in 1 week.
Disposition: Home with home PT
Discharge planning: Required 37-minute
Discharge Plan
-
Patient Disposition: Home with Home Care
Discharge Diagnosis/Procedures: Weakness, acute urinary tract infection, constipation
Condition: Fair
Diet: Regular
Activity: As tolerated
Driving Restrictions: As prior to admission
Activity Restrictions/Additional Instructions:
Please follow-up with your primary care provider in less than 1 week.
Referrals:
UNKNOWN - PT DOES,NOT KNOW [Family Provider]
Prescriptions:
New
fluticasone propionate [Flonase Allergy Relief] 50 mcg/actuation spray,suspension
1 spray intranasal BID Qty: 16 0RF
cetirizine 10 mg Tablet
10 mg PO DAILY Qty: 0 0RF
loratadine 10 mg capsule
10 mg PO DAILY Qty: 30 0RF
sennosides-docusate sodium 8.6-50 mg Tablet
2 tab PO BID 30 Days Qty: 120 0RF
Rx Instructions:
Hold for loose stools
Continued
therapeutic multivitamin Tablet
1 tab PO DAILY
amlodipine [Norvasc] 5 mg Tablet
5 mg PO DAILY
acetaminophen-codeine 300-60 mg tablet
1 tab PO BID
Culturelle 10 billion cell Capsule
1 cap PO DAILY
cranberry 500 mg Capsule
500 mg PO DAILY
polyethylene glycol 3350 [Miralax] 17 gram Powder In Packet
17 g PO DAILYPRN PRN (Reason: constipation)
acetaminophen-codeine 300-60 mg tablet
1 tab PO DAILYPRN PRN (Reason: severe pains)
estradiol [Estrace] 0.01 % (0.1 mg/gram) Cream
1 appful VAGINAL TUSA@1999
Discontinued
sulfamethoxazole-trimethoprim [Bactrim DS] 800-160 mg Tablet
1 tab PO BID
Rx Instructions:
for 7 days starting 09/27/24
Discharge Orders:
Discharge Patient (As Directed); Ordered 10/01/24
Ordered By: Jd Ko
Discharge Date and Time
Discharge Date/Time: 10/01/24 11:41
Print Language: YAKUT
[2024-10-01 11:05] VITALS: BP 93/62
== END 2024-10-01 11:41 | disposition home health service (06) | DRG 690 ==
LOC: 4 EAST ACU 13:41
PROVIDERS: Physician Assistant; ADMITTING PHYSICIAN Hospitalist; ATTENDING PHYSICIAN Family Medicine; EMERGENCY PHYSICIAN Emergency Medicine
DX: N39.0 Urinary tract infection, site not specified (principal); I69.354 Hemiplegia and hemiparesis following cerebral infarction affecting left non-dominant side; E44.0 Moderate protein-calorie malnutrition; Z68.1 Body mass index [BMI] 19.9 or less, adult; I10 Essential (primary) hypertension; Z66 Do not resuscitate; D64.9 Anemia, unspecified; Z11.52 Encounter for screening for COVID-19
CPT/HCPCS: 71046; 74177; 80053; 81003; 81015; 83605; 84484; 85025; 87086; 87088; 87186; 87502; 87811; 93005; 96374; 97163; 97167; 99285; Q9967